=== PATIENT | male | born 1960 | race Caucasian/White ===

== ENCOUNTER 2019-09-17 04:51 | Emergency (ER) | payer OTHER ==
[~2019-09-17] VITALS: Ht 162.6 cm; Wt 67.6 kg
[2019-09-17 04:56] VITALS: Ht 162.6 cm; Wt 67.6 kg
[2019-09-17 06:53] VITALS: BP 185/105
== END 2019-09-17 06:52 | disposition home or self-care (01) ==
LOC: ED 04:51
DX: M54.41 Lumbago with sciatica, right side (principal); I10 Essential (primary) hypertension; E78.00 Pure hypercholesterolemia, unspecified

== ENCOUNTER 2020-10-09 05:45 | Emergency (ER) | payer OTHER ==
[~2020-10-09] VITALS: Ht 162.6 cm; Wt 67.1 kg
[2020-10-09 06:47] VITALS: Ht 162.6 cm; Wt 67.1 kg
[2020-10-09 07:09] VITALS: BP 186/115
== END 2020-10-09 07:09 | disposition left against medical advice (07) ==
LOC: ED 05:45
DX: L25.9 Unspecified contact dermatitis, unspecified cause (principal); I10 Essential (primary) hypertension; E78.00 Pure hypercholesterolemia, unspecified